=== PATIENT | female | born 1985 | race Caucasian/White ===

== ENCOUNTER 2017-06-17 20:37 | Emergency (ER) | payer MEDICAID ==
[2017-06-17] MEDS ORDERED: HYDROmorphone 1 MG/ML Syringe IM ONE (20:55)
[2017-06-17] MEDS ORDERED: Cyclobenzaprine 10 MG Tab PO ONE (20:56)
--- NOTE | 2017-06-17 20:59 | EDM.PDOC ---
ED HPI GENERAL MEDICAL PROBLEM - General Chief Complaint: Back Pain or Injury Stated Complaint: PINCH BACK Time Seen by Provider: 06/17/17 20:53 Source of Information: Reports: Patient History Limitations: Reports: No Limitations - History of Present Illness INITIAL COMMENTS - FREE TEXT/NARRATIVE: HISTORY AND PHYSICAL: []32-year-old female presenting with neck and upper back pain in the left History of Present Illness: []1 week ago patient was hugging a member at [employer] and felt her muscle strain Review of Systems: As per history of present illness and below otherwise all systems reviewed and negative. Past medical history: As per history of present illness and as reviewed below otherwise noncontributory. Surgical history: As per history of present illness and as reviewed below otherwise noncontributory. Social history: No reported history of drug or alcohol abuse. Family history: As per history of present illness and as reviewed below otherwise noncontributory. Physical exam: Alert and oriented female answering questions appropriately using full sentences without any shortness of breath HEENT: Atraumatic, normocehpalic, pupils reactive, negative for conjunctival pallor or scleral icterus, mucous membranes moist, throat clear, neck supple, nontender, trachea midline. Tenderness noted with palpation to the left of the cervical spine cord her muscle is noted when following the dermatome line across and down to her scapula muscle is noted medially. Lungs: Clear to auscultation, breath sounds equal bilaterally, chest non tender. Heart: S1S2, regular, negative for clicks, rubs, or JVD. Abdomen: Soft, nondistended, nontender. Negative for masses or hepatossplenmegaly. Negative for costovertebral tenderness. Pelvis: Stable nontender. Genitourinary: Deferred. Rectal: Deferred Extremities: Atraumatic, negative for cords or calf pain. Neurovascular unremarkable. Neuro: Awake, alert, oriented. Cranial nerves II through XII unremarkable. Cerebellum unremarkable. Motor and sensory unremarkable throughout. Exam nonfocal. Diagnostics: [] Therapeutics: [Dilaudid 0.5 IM ] Impression: []Musculoskeletal strain Plan: []Discharge to home Flexeril 3 times a day when necessary for pain Follow-up with your PCP this week Definitive disposition and diagnosis as appropriate pending reevaluation and review of above. Onset: Sudden Duration: Day(s): (7) Location: Reports: Neck, Upper Extremity, Left Upper Back Pain Score (Numeric/FACES): 9 - Related Data Allergies Allergy/AdvReac Type Severity Reaction Status Date / Time ketorolac [From Toradol] Allergy Other Verified 06/17/17 20:46 nifedipine Allergy Cannot Verified 04/17/15 11:17 Remember prednisone Allergy Cannot Verified 04/17/15 11:17 Remember tramadol Allergy Other Verified 06/17/17 20:46 Home Meds: Home Meds Gabapentin [Neurontin] 300 mg PO TID 06/17/17 [History] Past Medical History Musculoskeletal History: Reports: Fibromyalgia Social & Family History - Tobacco Use Smoking Status *Q: Current Every Day Smoker Years of Tobacco use: 10 Packs/Tins Daily: 0.5 - Recreational Drug Use Recreational Drug Use: No Recreational Drug Type: Reports: Marijuana/Hashish Recreational Drug Use Frequency: Rarely ED ROS GENERAL - Review of Systems Review Of Systems: ROS reveals no pertinent complaints other than HPI. ED EXAM, UPPER BACK/NECK PAIN - Physical Exam Exam: See Below (See dictation) Course - Vital Signs Last Recorded V/S: Last Vital Signs Temp 36.3 C 06/17/17 20:50 Pulse 83 06/17/17 20:50 Resp 18 06/17/17 20:50 BP 109/68 06/17/17 20:50 Pulse Ox 99 06/17/17 20:50 Departure - Departure Time of Disposition: 20:56 Disposition: Home, Self-Care 01 Condition: Good Clinical Impression: Musculoskeletal pain - Discharge Information Instructions: Muscle Strain, [id number] Referrals: Madyson Oliveira NP [Primary Care Provider] - Additional Instructions: The following information is given to patients seen in the emergency department who are being discharged to home. This information is to outline your options for follow-up care. We provide all patients seen in our emergency department with a follow-up referral. The need for follow-up, as well as the timing and circumstances, are variable depending upon the specifics of your emergency department visit. If you don't have a primary care physician on staff, we will provide you with a referral. We always advise you to contact your personal physician following an emergency department visit to inform them of the circumstance of the visit and for follow-up with them and/or the need for any referrals to a consulting specialist. The emergency department will also refer you to a specialist when appropriate. This referral assures that you have the opportunity for followup care with a specialist. All of these measure are taken in an effort to provide you with optimal care, which includes your followup. Under all circumstances we always encourage you to contact your private physician who remains a resource for coordinating your care. When calling for followup care, please make the office aware that this follow-up is from your recent emergency room visit. If for any reason you are refused follow-up, please contact the [facility] emergency department at and asked to speak to the emergency department charge nurse. You were given pain medication while in the emergency department as well as a muscle relaxant Please follow-up with your primary care provider this week Prescription for Flexeril 10 mg 3 times a day has been handwritten number of 9 tablets no refill
[2017-06-17 21:28] VITALS: BP 112/83
== END 2017-06-17 21:30 | disposition home or self-care (01) ==
LOC: MW.ED 20:37
DX: S29.012A Strain of muscle and tendon of back wall of thorax, initial encounter (principal); S16.1XXA Strain of muscle, fascia and tendon at neck level, initial encounter; F17.210 Nicotine dependence, cigarettes, uncomplicated; Z88.6 Allergy status to analgesic agent; Z88.8 Allergy status to other drugs, medicaments and biological substances; Z88.5 Allergy status to narcotic agent; X58.XXXA Exposure to other specified factors, initial encounter
CPT/HCPCS: 96372; 99283; A9270; J1170

== ENCOUNTER 2017-08-26 12:48 | Emergency (ER) | payer MEDICAID ==
[2017-08-26 13:37] VITALS: BP 129/80
--- NOTE | 2017-08-26 14:05 | EDM.PDOC ---
ED HPI GENERAL MEDICAL PROBLEM - General Chief Complaint: Lower Extremity Injury/Pain Stated Complaint: LT ANKLE SWOLLEN Time Seen by Provider: 08/26/17 13:45 Source of Information: Reports: Patient History Limitations: Reports: No Limitations - History of Present Illness INITIAL COMMENTS - FREE TEXT/NARRATIVE: HISTORY AND PHYSICAL: History of present illness: [Pt comes to the Er c/o L foot and ankle pain for the past 3 days. She has noticed quite a bit of swelling and bruising to her left foot and ankle. She estimates that her left ankle was 3 times the size of the right yesterday. Swelling resolved overnight the pain continues. She's noticed bruising to the top of her foot as well as around her medial ankle. Has been very tender with palpation. She denies injury and trauma. No recent falls. Pain is to the bottom of her foot, as well as lateral and medial ankle. She has a lot of pain to the arch of her left foot with certain foot motions. She took some ibuprofen at 7: 30 this morning which has not helped her pain. Denies fever and chills. No chest pain shortness of breath and difficulty breathing. No abdominal pain. She is eating and drinking well.] Review of systems: As per history of present illness and below otherwise all systems reviewed and negative. Past medical history: As per history of present illness and as reviewed below otherwise noncontributory. Surgical history: As per history of present illness and as reviewed below otherwise noncontributory. Social history: No reported history of drug or alcohol abuse. Family history: As per history of present illness and as reviewed below otherwise noncontributory. Physical exam: HEENT: Atraumatic, normocephalic. Extremities: Left lower leg, ankle and foot is atraumatic in appearance. No erythema or ecchymosis is appreciated. No swelling is appreciated. Pedal pulses are 2+. Capillary Refill less than 2 seconds. Has full range of motion. Complains of pain to her the arch of her left foot with extension. Negative Homans sign. No cords or calf pain with palpation. Neurovascular unremarkable. Neuro: Awake, alert, oriented. Motor and sensory unremarkable throughout. Exam nonfocal. Diagnostics: [Left foot x-ray, left ankle x-ray] Therapeutics: [Hydrocodone 5/325mg po] Impression: [L foot pain] Plan: [Discussed w/ patient that her xrays and labs are benign. Recommend OTC analgesics and anti-inflammatories prn, and she is given referral to local housing quality standard inspector. She requests Rx for hydrocodone, and is advised to maximize OTC medications. Strict return precautions reviewed. ] Definitive disposition and diagnosis as appropriate pending reevaluation and review of above. Left Ankle Pain Score (Numeric/FACES): 7 - Related Data Allergies Allergy/AdvReac Type Severity Reaction Status Date / Time ketorolac [From Toradol] Allergy Other Verified 06/17/17 20:46 nifedipine Allergy Cannot Verified 04/17/15 11:17 Remember prednisone Allergy Cannot Verified 04/17/15 11:17 Remember tramadol Allergy Other Verified 06/17/17 20:46 Home Meds: Home Meds Gabapentin [Neurontin] 300 mg PO TID 06/17/17 [History] Past Medical History Musculoskeletal History: Reports: Fibromyalgia Social & Family History - Tobacco Use Smoking Status *Q: Current Every Day Smoker Years of Tobacco use: 10 Packs/Tins Daily: 0.5 - Recreational Drug Use Recreational Drug Use: No Recreational Drug Type: Reports: Marijuana/Hashish Recreational Drug Use Frequency: Rarely Review of Systems - Review of Systems Review Of Systems: ROS reveals no pertinent complaints other than HPI. ED EXAM, GENERAL - Physical Exam Exam: See Below Course - Vital Signs Last Recorded V/S: Last Vital Signs Temp 98.2 F 08/26/17 13:35 Pulse 72 08/26/17 13:35 Resp 18 08/26/17 13:35 BP 129/80 08/26/17 13:35 Pulse Ox 98 08/26/17 13:35 - Orders/Labs/Meds Labs: Laboratory Tests 08/26/17 08/26/17 Range/Units 14:53 14:53 WBC 7.05 (4.0-11.0) K/uL RBC 4.01 L (4.30-5.90) M/uL Hgb 12.9 (12.0-16.0) g/dL Hct 37.6 (36.0-46.0) % MCV 93.8 (80.0-98.0) fL MCH 32.2 H (27.0-32.0) pg MCHC 34.3 (31.0-37.0) g/dL RDW Std Deviation 48.1 (28.0-62.0) fl RDW Coeff of Danny 14 (11.0-15.0) % Plt Count 251 (150-400) K/uL MPV 9.40 (7.40-12.00) fL Neut % (Auto) 65.1 (48.0-80.0) % Lymph % (Auto) 26.1 (16.0-40.0) % [place] % (Auto) 6.1 (0.0-15.0) % Eos % (Auto) 2.0 (0.0-7.0) % Baso % (Auto) 0.7 (0.0-1.5) % Neut # (Auto) 4.6 (1.4-5.7) K/uL Lymph # (Auto) 1.8 (0.6-2.4) K/uL [place] # (Auto) 0.4 (0.0-0.8) K/uL Eos # (Auto) 0.1 (0.0-0.7) K/uL Baso # (Auto) 0.1 (0.0-0.1) K/uL Nucleated RBC % 0.0 /100WBC Nucleated RBCs # 0 K/uL Uric Acid 2.1 L (2.6-7.2) mg/dL Meds: Medications Discontinued Medications Generic Name Dose Route Start Last Admin Trade Name Freq PRN Reason Stop Dose Admin Hydrocodone Bitart/Acetaminophen 1 tab 08/26/17 14:43 08/26/17 15:47 Atkinson 325-5 Mg PO 08/26/17 14:44 1 tab ONETIME ONE Administration Departure - Departure Time of Disposition: 15:35 Disposition: Home, Self-Care 01 Condition: Good Clinical Impression: Left foot pain - Discharge Information Instructions: Foot Pain Referrals: Madyson Oliveira NP [Primary Care Provider] - Forms: ED Department Discharge Additional Instructions: The following information is given to patients seen in the emergency department who are being discharged to home. This information is to outline your options for follow-up care. We provide all patients seen in our emergency department with a follow-up referral. The need for follow-up, as well as the timing and circumstances, are variable depending upon the specifics of your emergency department visit. If you don't have a primary care physician on staff, we will provide you with a referral. We always advise you to contact your personal physician following an emergency department visit to inform them of the circumstance of the visit and for follow-up with them and/or the need for any referrals to a consulting specialist. The emergency department will also refer you to a specialist when appropriate. This referral assures that you have the opportunity for follow-up care with a specialist. All of these measure are taken in an effort to provide you with optimal care, which includes your follow-up. Under all circumstances we always encourage you to contact your private physician who remains a resource for coordinating your care. When calling for follow-up care, please make the office aware that this follow-up is from your recent emergency room visit. If for any reason you are refused follow-up, please contact the [facility] emergency department at and asked to speak to the emergency department charge nurse. Dr. Mitzi Garcia [id number], [place] [id number] Your x-rays are negative for fracture and abnormality. Your labs show no gout or infection. Follow up with the housing quality standard inspector at the clinic listed above. Alternate ibuprofen w/ Tylenol as needed for discomfort. Return to ER as needed as discussed.
--- NOTE | 2017-08-26 14:19 | CR ---
EXAMINATION: Left ankle and left foot HISTORY: Pain COMPARISON: None TECHNIQUE: 3 views of the left ankle and 2 views of the left FINDINGS: There is no acute osseous abnormality, dislocation, or fracture. Bone mineralization and ayla int spaces appear normal. The ankle mortise and the talar dome appear intact. No focal soft tissue swelling or foreign body. IMPRESSION: No acute osseous abnormality identified.
[2017-08-26] MEDS ORDERED: Acetaminophen/HYDROcodone 325-5 MG Tab PO ONE (14:43)
== END 2017-08-26 15:44 | disposition home or self-care (01) ==
LOC: MW.ED 12:48
DX: M79.672 Pain in left foot (principal); F17.210 Nicotine dependence, cigarettes, uncomplicated; Z88.5 Allergy status to narcotic agent; Z88.6 Allergy status to analgesic agent; Z88.8 Allergy status to other drugs, medicaments and biological substances
CPT/HCPCS: 36415; 73610; 73620; 84550; 85025; 99283; A9270

== ENCOUNTER 2019-01-23 18:14 | Emergency (ER) | payer OTHER ==
[2019-01-23] MEDS ORDERED: Ondansetron 4 MG Tab.DIS PO ONE (19:11)
[2019-01-23] MEDS ORDERED: diphenhydrAMINE 50 MG/ML SDV IVPUSH ONE (19:11)
[2019-01-23] MEDS ORDERED: Sodium Chloride 0.9% 1,000 ML IV ONE (19:11)
[2019-01-23] MEDS ORDERED: Metoclopramide 10 MG/2 ML SDV IV ONE (19:11)
--- NOTE | 2019-01-23 19:14 | EDM.PDOC ---
ED HPI GENERAL MEDICAL PROBLEM - General Chief Complaint: Headache Stated Complaint: MIGRAINE Time Seen by Provider: 01/23/19 19:08 - History of Present Illness INITIAL COMMENTS - FREE TEXT/NARRATIVE: HISTORY AND PHYSICAL: History of present illness: Patient 33-year-old white female with history of migraine headache presents with concern of migraine this is has associated photophobia and nausea and states it began this a.m. she denies any obvious precipitant she states this sometimes does come on abruptly without clear causation. This is typical migraine for which she's been treated for years. Review of systems: As per history of present illness and below otherwise all systems reviewed and negative. Past medical history: As per history of present illness and as reviewed below otherwise noncontributory. Surgical history: As per history of present illness and as reviewed below otherwise noncontributory. Social history: No reported history of drug or alcohol abuse. Family history: As per history of present illness and as reviewed below otherwise noncontributory. Physical exam: HEENT: Atraumatic, normocephalic, pupils reactive, negative for conjunctival pallor or scleral icterus, mucous membranes moist, throat clear, neck supple, nontender, trachea midline. Lungs: Clear to auscultation, breath sounds equal bilaterally, chest nontender. Heart: S1S2, regular, negative for clicks, rubs, or JVD. Abdomen: Soft, nondistended, nontender. Negative for masses or hepatosplenomegaly. Negative for costovertebral tenderness. Pelvis: Stable nontender. Genitourinary: Deferred. Rectal: Deferred. Extremities: Atraumatic, negative for cords or calf pain. Neurovascular unremarkable. Neuro: Awake, alert, oriented. Cranial nerves II through XII unremarkable. Cerebellum unremarkable. Motor and sensory unremarkable throughout. Exam nonfocal. Diagnostics: UDS Therapeutics: Saline 1 L bolus Reglan 10 mg IV Benadryl 50 mg IV Zofran 4 mg IV Impression: #1 migraine headache Definitive disposition and diagnosis as appropriate pending reevaluation and review of above. Headache Pain Score (Numeric/FACES): 10 - Related Data Allergies Allergy/AdvReac Type Severity Reaction Status Date / Time ketorolac [From Toradol] Allergy Other Verified 01/23/19 18:36 nifedipine Allergy Cannot Verified 01/23/19 18:36 Remember prednisone Allergy Cannot Verified 01/23/19 18:36 Remember tramadol Allergy Other Verified 01/23/19 18:36 Home Meds: Home Meds . [No Known Home Meds] 01/23/19 [History] Past Medical History - Past Health History Medical/Surgical History: Denies Medical/Surgical History Musculoskeletal History: Reports: Fibromyalgia Neurological History: Reports: Migraines - Infectious Disease History Infectious Disease History: Reports: None Social & Family History - Family History Family Medical History: Noncontributory - Tobacco Use Smoking Status *Q: Current Every Day Smoker Years of Tobacco use: 15 Packs/Tins Daily: 1 - Caffeine Use Caffeine Use: Reports: Coffee - Recreational Drug Use Recreational Drug Use: Yes Drug Use in Last 12 Months: Yes Recreational Drug Type: Reports: Marijuana/Hashish Recreational Drug Use Frequency: Daily ED ROS GENERAL - Review of Systems Review Of Systems: ROS reveals no pertinent complaints other than HPI. ED EXAM, GENERAL - Physical Exam Exam: See Below (See dictation) Course - Vital Signs Last Recorded V/S: Last Vital Signs Temp 36.6 C 01/23/19 18:33 Pulse 77 01/23/19 18:33 Resp 20 01/23/19 18:33 BP 129/64 01/23/19 18:33 Pulse Ox 99 01/23/19 18:33 - Orders/Labs/Meds Labs: Laboratory Tests 01/23/19 Range/Units 19:50 Urine Opiates Screen NEGATIVE (NEGATIVE) Ur Oxycodone Screen NEGATIVE (NEGATIVE) Urine Methadone Screen NEGATIVE (NEGATIVE) Ur Barbiturates Screen NEGATIVE (NEGATIVE) Ur Phencyclidine Scrn NEGATIVE (NEGATIVE) Ur Amphetamine Screen NEGATIVE (NEGATIVE) U Methamphetamines Scrn NEGATIVE (NEGATIVE) U Benzodiazepines Scrn NEGATIVE (NEGATIVE) U Cocaine Metab Screen NEGATIVE (NEGATIVE) U Marijuana (THC) Screen POSITIVE (NEGATIVE) Meds: Medications Discontinued Medications Generic Name Dose Route Start Last Admin Trade Name Freq PRN Reason Stop Dose Admin Diphenhydramine HCl 50 mg 01/23/19 19:11 01/23/19 19:29 Benadryl IVPUSH 01/23/19 19:12 50 mg ONETIME ONE Administration Sodium Chloride 1,000 mls @ 999 mls/hr 01/23/19 19:11 01/23/19 19:28 Normal Saline IV 01/23/19 20:11 999 mls/hr STAT ONE Administration Metoclopramide HCl 10 mg 01/23/19 19:11 01/23/19 19:32 Reglan IV 01/23/19 19:12 10 mg ONETIME ONE Administration Ondansetron HCl 4 mg 01/23/19 19:11 01/23/19 19:29 Zofran Odt PO 01/23/19 19:12 4 mg ONETIME ONE Administration Departure - Departure Time of Disposition: 20:24 Disposition: Home, Self-Care 01 Condition: Good Clinical Impression: Migraine - Discharge Information Referrals: PCP,None [Primary Care Provider] - Forms: ED Department Discharge Additional Instructions: The following information is given to patients seen in the emergency department who are being discharged to home. This information is to outline your options for follow-up care. We provide all patients seen in our emergency department with a follow-up referral. The need for follow-up, as well as the timing and circumstances, are variable depending upon the specifics of your emergency department visit. If you don't have a primary care physician on staff, we will provide you with a referral. We always advise you to contact your personal physician following an emergency department visit to inform them of the circumstance of the visit and for follow-up with them and/or the need for any referrals to a consulting specialist. The emergency department will also refer you to a specialist when appropriate. This referral assures that you have the opportunity for followup care with a specialist. All of these measure are taken in an effort to provide you with optimal care, which includes your followup. Under all circumstances we always encourage you to contact your private physician who remains a resource for coordinating your care. When calling for followup care, please make the office aware that this follow-up is from your recent emergency room visit. If for any reason you are refused follow-up, please contact the [facility] emergency department at and asked to speak to the emergency department charge nurse. [facility] [address] [place] [id number] Follow-up primary medical doctor as discussed return as needed as discussed
[2019-01-23 20:56] VITALS: BP 119/68; PULSE 79
== END 2019-01-23 20:56 | disposition home or self-care (01) ==
LOC: MW.ED 18:14
DX: G43.909 Migraine, unspecified, not intractable, without status migrainosus (principal); F17.210 Nicotine dependence, cigarettes, uncomplicated; Z88.5 Allergy status to narcotic agent; Z88.6 Allergy status to analgesic agent; Z88.8 Allergy status to other drugs, medicaments and biological substances
CPT/HCPCS: 80305; 96361; 96374; 96375; 99283; A9270; J1200; J2765; J7040

== ENCOUNTER 2020-12-20 19:23 | Emergency (ER) | payer BC ==
[2020-12-20] MEDS ORDERED: Sodium Chloride 0.9% 1,000 ML IV ONE (20:14)
[2020-12-20] MEDS ORDERED: Metoclopramide 10 MG/2 ML SDV IV ONE (20:14)
[2020-12-20] MEDS ORDERED: diphenhydrAMINE 50 MG/ML SDV IVPUSH ONE (20:14)
[2020-12-20] MEDS ORDERED: Ondansetron 4 MG/2 ML SDV IVPUSH ONE (20:14)
[2020-12-20 21:51] VITALS: PULSE 66
[2020-12-20] MEDS ORDERED: Acetaminophen/HYDROcodone 325-5 MG Tab PO ONE (21:53)
--- NOTE | 2020-12-20 21:54 | EDM.PDOC ---
ED HPI GENERAL MEDICAL PROBLEM - General Chief Complaint: Headache Stated Complaint: MIGRAIN HEADACHE Time Seen by Provider: 12/20/20 19:41 Source of Information: Reports: Patient History Limitations: Reports: No Limitations - History of Present Illness INITIAL COMMENTS - FREE TEXT/NARRATIVE: HISTORY AND PHYSICAL: History of present illness: Patient is a 35-year-old female who resents to the ED today with concern of migraine headache over the past 3 to 4 days that has been constant. Patient states that she took 1 dose of Excedrin earlier this morning and then 1 dose of Tylenol this afternoon but states she has not had improvement of her symptoms. Patient states that she has a history of known migraine disorder and states that this is typical of her usual migraines. Patient states that is in the front and in the back of her head and has a pounding sensation with photophobia. Patient denies any head trauma or injury or any other associative symptoms. Patient denies fever, chills, chest pain, shortness of breath, or cough. Denies headache, neck stiff ness, change in vision, syncope, or near syncope. Denies nausea, vomiting, abdominal pain, diarrhea, constipation, or dysuria. Has not noted any blood in urine or stool. Patient has been eating and drinking appropriately. Review of systems: As per history of present illness and below otherwise all systems reviewed and negative. Past medical history: As per history of present illness and as reviewed below otherwise noncontributory. Surgical history: As per history of present illness and as reviewed below otherwise noncontributory. Social history: See social history for further information Family history: As per history of present illness and as reviewed below otherwise noncontributory. Physical exam: General: Patient is alert, oriented, and in no acute distress. Patient laying comfortably on exam table. Vitals stable and reviewed by me. HEENT: Atraumatic, normocephalic, pupils equal and reactive bilaterally, negative for conjunctival pallor or scleral icterus, mucous membranes moist, TMs normal bilaterally, throat clear, neck supple, nontender, trachea midline. No drooling or trismus noted. No meningeal signs. No hot potato voice noted. Lungs: Clear to auscultation, breath sounds equal bilaterally, chest nontender. Heart: S1S2, regular rate and rhythm without overt murmur Abdomen: Soft, nondistended, nontender. Negative for masses or hepatosplenomegaly. Negative for costovertebral tenderness. Pelvis: Stable nontender. Genitourinary: Deferred. Rectal: Deferred. Skin: Intact, warm, dry. No lesions or rashes noted. Extremities: Atraumatic, negative for cords or calf pain. Neurovascular unremarkable. Neuro: Awake, alert, oriented. Cranial nerves II through XII unremarkable. Cerebellum unremarkable. Motor and sensory unremarkable throughout. Exam nonfocal. Notes: Patient has improvement of symptoms with therapeutics today in the ED. Signs and symptoms that were prompt return to the ED thoroughly discussed with patient. Discussed importance for follow-up with a primary care provider. Voices understanding and is agreeable to plan of care. Denies any further questions or concerns at this time. Diagnostics: None Therapeutics: Saline, Zofran, Reglan, Benadryl, Stonewall 5/325 Prescription: None Impression: Migraine headache, improved Plan: 1. Encourage small but frequent sips of fluid to prevent dehydration. 2. Follow-up with a primary care provider as discussed. Return to the ED as needed as discussed. 3. You can take Tylenol as directed for pain and discomfort. Definitive disposition and diagnosis as appropriate pending reevaluation and review of above. Treatments IN ROOM DINING SERVER: Reports: Acetaminophen Frontal Head Pain Score (Numeric/FACES): 7 - Related Data Allergies Allergy/AdvReac Type Severity Reaction Status Date / Time ketorolac [From Toradol] Allergy Other Verified 12/20/20 20:03 nifedipine Allergy Cannot Verified 12/20/20 20:03 Remember prednisone Allergy Cannot Verified 12/20/20 20:03 Remember tramadol Allergy Other Verified 12/20/20 20:03 Home Meds: Home Meds . [No Known Home Meds] 01/23/19 [History] Past Medical History - Past Health History Medical/Surgical History: Denies Medical/Surgical History HEENT History: Reports: None Cardiovascular History: Reports: None Respiratory History: Reports: None Gastrointestinal History: Reports: None ARTICULATION OFFICER History: Reports: None Musculoskeletal History: Reports: Fibromyalgia Neurological History: Reports: Migraines Psychiatric History: Reports: None Endocrine/Metabolic History: Reports: None Hematologic History: Reports: None Immunologic History: Reports: None Oncologic (Cancer) History: Reports: None Dermatologic History: Reports: None - Infectious Disease History Infectious Disease History: Reports: None - Past Surgical History Head Surgeries/Procedures: Reports: None Respiratory Surgical History: Reports: None Female Surgical History: Reports: Hysterectomy, Salpingo-Oophorectomy Musculoskeletal Surgical History: Reports: None Oncologic Surgical History: Reports: None Social & Family History - Family History Family Medical History: No Pertinent Family History - Tobacco Use Tobacco Use Status *Q: Heavy Tobacco User Years of Tobacco use: 9 Packs/Tins Daily: 0 - Caffeine Use Caffeine Use: Reports: Coffee, Energy Drinks - Recreational Drug Use Recreational Drug Use: Yes Drug Use in Last 12 Months: Yes Recreational Drug Type: Reports: Marijuana/Hashish Recreational Drug Use Frequency: Daily ED ROS GENERAL - Review of Systems Review Of Systems: Comprehensive ROS is negative, except as noted in HPI. ED EXAM, GENERAL - Physical Exam Exam: See Below (See dictation) Course - Vital Signs Last Recorded V/S: Last Vital Signs Temp 99.2 F 12/20/20 20:04 Pulse 66 12/20/20 21:50 Resp 18 12/20/20 21:50 BP 99/50 L 12/20/20 21:50 Pulse Ox 98 12/20/20 21:50 - Orders/Labs/Meds Meds: Medications Discontinued Medications Generic Name Dose Route Start Last Admin Trade Name Freq PRN Reason Stop Dose Admin Hydrocodone Bitart/Acetaminophen 1 tab 12/20/20 21:53 Acetaminophen/Hydrocodone 325-5 Mg Tab PO 12/20/20 21:54 ONETIME ONE Diphenhydramine HCl 50 mg 12/20/20 20:14 12/20/20 20:22 Diphenhydramine 50 Mg/Ml Sdv IVPUSH 12/20/20 20:15 50 mg ONETIME ONE Administration Sodium Chloride 1,000 mls @ 999 mls/hr 12/20/20 20:14 12/20/20 20:22 Normal Saline IV 12/20/20 21:14 999 mls/hr STAT ONE Administration Metoclopramide HCl 10 mg 12/20/20 20:14 12/20/20 20:22 Metoclopramide 10 Mg/2 Ml Sdv IV 12/20/20 20:15 10 mg ONETIME ONE Administration Ondansetron HCl 4 mg 12/20/20 20:14 12/20/20 20:22 Ondansetron 4 Mg/2 Ml Sdv IVPUSH 12/20/20 20:15 4 mg ONETIME ONE Administration Departure - Departure Time of Disposition: 21:54 Disposition: Home, Self-Care 01 Clinical Impression: Migraine - Discharge Information Referrals: Anton Garcia DO [Primary Care Provider] - Forms: ED Department Discharge Additional Instructions: The following information is given to patients seen in the emergency department who are being discharged to home. This information is to outline your options for follow-up care. We provide all patients seen in our emergency department with a follow-up referral. The need for follow-up, as well as the timing and circumstances, are variable depending upon the specifics of your emergency department visit. If you don't have a primary care physician on staff, we will provide you with a referral. We always advise you to contact your personal physician following an emergency department visit to inform them of the circumstance of the visit and for follow-up with them and/or the need for any referrals to a consulting specialist. The emergency department will also refer you to a specialist when appropriate. This referral assures that you have the opportunity for follow-up care with a specialist. All of these measure are taken in an effort to provide you with optimal care, which includes your follow-up. Under all circumstances we always encourage you to contact your private physician who remains a resource for coordinating your care. When calling for follow-up care, please make the office aware that this follow-up is from your recent emergency room visit. If for any reason you are refused follow-up, please contact the [facility] Emergency Department at and asked to speak to the emergency department charge nurse. [facility] [address] [place] [id number] [address] [address] 1. Encourage small but frequent sips of fluid to prevent dehydration. 2. Follow-up with a primary care provider as discussed. Return to the ED as needed as discussed. 3. You can take Tylenol as directed for pain and discomfort. Sepsis Event Note (ED) - Evaluation Sepsis Screening Result: No Definite Risk - Focused Exam Vital Signs: Vital Signs Temp Pulse Resp BP Pulse Ox 12/20/20 21:50 66 18 99/50 L 98 12/20/20 20:04 99.2 F 67 18 125/68 97
[2020-12-20 22:35] VITALS: BP 121/61
== END 2020-12-20 22:35 | disposition home or self-care (01) ==
LOC: MW.ED 19:23
DX: G43.909 Migraine, unspecified, not intractable, without status migrainosus (principal); Z88.5 Allergy status to narcotic agent; Z88.6 Allergy status to analgesic agent; Z88.8 Allergy status to other drugs, medicaments and biological substances; Z72.0 Tobacco use
CPT/HCPCS: 96374; 96375; 99283; A9270; J1200; J2405; J2765; J7030

== ENCOUNTER 2021-06-29 11:15 | Emergency (ER) | payer BC ==
[2021-06-29] MEDS ORDERED: diphenhydrAMINE 50 MG/ML SDV IVPUSH ONE (11:32)
[2021-06-29] MEDS ORDERED: Metoclopramide 10 MG/2 ML SDV IVPUSH ONE (11:32)
[2021-06-29] MEDS ORDERED: Acetaminophen/Butalbital/Caffeine 325-50-40 MG Tab PO ONE (11:33)
[2021-06-29] MEDS ORDERED: Sodium Chloride 0.9% 1,000 ML IV ONE (11:34)
--- NOTE | 2021-06-29 11:40 | EDM.PDOC ---
ED HPI GENERAL MEDICAL PROBLEM - General Chief Complaint: Headache Stated Complaint: "BAD HEADACHE" Time Seen by Provider: 06/29/21 11:16 Source of Information: Reports: Patient History Limitations: Reports: No Limitations - History of Present Illness INITIAL COMMENTS - FREE TEXT/NARRATIVE: 36-year-old female past medical history migraine headaches presents for presumptive migraine headache. Patient states that symptoms started this morning shortly after waking up. Pain is primarily in right retro-orbital face radiating to right occipital head. It is associated with dizziness, light sensitivity, sound sensitivity, nausea. Patient did note that she had a cough this morning but denies shortness of breath or chest pain. She is uncertain if she has had fevers. She does state that this feels like her typical migraine headaches but worse. She took 2 sumatriptan tablets without relief of symptoms prompting her to come to the emergency department. Treatments BOILING TUB OPERATOR: Reports: Other (see below) Other Treatments BOILING TUB OPERATOR: Sumitriptan 25mg x2 this morning - Related Data Allergies Allergy/AdvReac Type Severity Reaction Status Date / Time ketorolac [From Toradol] Allergy Other Verified 12/20/20 20:03 nifedipine Allergy Cannot Verified 12/20/20 20:03 Remember prednisone Allergy Cannot Verified 12/20/20 20:03 Remember tramadol Allergy Other Verified 12/20/20 20:03 Home Meds: Home Meds . [No Known Home Meds] 01/23/19 [History] Past Medical History - Past Health History Medical/Surgical History: Denies Medical/Surgical History HEENT History: Reports: None Cardiovascular History: Reports: None Respiratory History: Reports: None Gastrointestinal History: Reports: None SOLUTIONS MARKET CONSULTANT History: Reports: None Musculoskeletal History: Reports: Fibromyalgia Neurological History: Reports: Migraines Psychiatric History: Reports: None Endocrine/Metabolic History: Reports: None Hematologic History: Reports: None Immunologic History: Reports: None Oncologic (Cancer) History: Reports: None Dermatologic History: Reports: None - Infectious Disease History Infectious Disease History: Reports: None - Past Surgical History Head Surgeries/Procedures: Reports: None Respiratory Surgical History: Reports: None Female Surgical History: Reports: Hysterectomy, Salpingo-Oophorectomy Musculoskeletal Surgical History: Reports: None Oncologic Surgical History: Reports: None Social & Family History - Family History Family Medical History: No Pertinent Family History - Caffeine Use Caffeine Use: Reports: Coffee, Energy Drinks ED ROS GENERAL - Review of Systems Review Of Systems: Comprehensive ROS is negative, except as noted in HPI. ED EXAM, GENERAL - Physical Exam Exam: See Below Exam Limited By: No Limitations General Appearance: Alert, WD/WN, No Apparent Distress Eye Exam: Bilateral Eye: EOMI, PERRL Ears: Hearing Grossly Normal Throat/Mouth: Normal Voice, No Airway Compromise Head: Atraumatic, Normocephalic Respiratory/Chest: No Respiratory Distress, Lungs Clear, Normal Breath Sounds, No Accessory Muscle Use Cardiovascular: Normal Peripheral Pulses, Regular Rate, Rhythm Extremities: Normal Inspection Neurological: Alert, CN II-XII Intact, Normal Cognition, Normal Gait, No Motor/Sensory Deficits Psychiatric: Normal Affect, Normal Mood Skin Exam: Warm, Dry, Intact, Normal Color Course - Vital Signs Last Recorded V/S: Last Vital Signs Temp 97.7 F 06/29/21 11:29 Pulse 71 06/29/21 12:27 Resp 18 06/29/21 12:27 BP 123/73 06/29/21 12:27 Pulse Ox 100 06/29/21 12:27 - Orders/Labs/Meds Orders: Active Orders 24 hr Category Date Time Status Saline Lock Insert [OM.PC] Stat Oth 06/29/21 11:32 Ordered Labs: Laboratory Tests 06/29/21 06/29/21 06/29/21 Range/Units 11:40 11:40 11:40 WBC 10.00 (4.0-11.0) K/uL RBC 4.01 L (4.30-5.90) M/uL Hgb 13.1 (12.0-16.0) g/dL Hct 38.2 (36.0-46.0) % MCV 95.3 (80.0-98.0) fL MCH 32.7 H (27.0-32.0) pg MCHC 34.3 (31.0-37.0) g/dL RDW Std Deviation 47.6 (28.0-62.0) fl RDW Coeff of Danny 14 (11.0-15.0) % Plt Count 393 (150-400) K/uL MPV 9.40 (7.40-12.00) fL Neut % (Auto) 60.1 (48.0-80.0) % Lymph % (Auto) 31.3 (16.0-40.0) % Highland % (Auto) 5.6 (0.0-15.0) % Eos % (Auto) 2.2 (0.0-7.0) % Baso % (Auto) 0.8 (0.0-1.5) % Neut # (Auto) 6.0 H (1.4-5.7) K/uL Lymph # (Auto) 3.1 H (0.6-2.4) K/uL Highland # (Auto) 0.6 (0.0-0.8) K/uL Eos # (Auto) 0.2 (0.0-0.7) K/uL Baso # (Auto) 0.1 (0.0-0.1) K/uL Nucleated RBC % 0.0 /100WBC Nucleated RBCs # 0 K/uL Sodium 140 (136-145) mmol/L Potassium 3.7 (3.5-5.1) mmol/L Chloride 105 (98-107) mmol/L Carbon Dioxide 28.3 (21.0-32.0) mmol/L BUN 16 (7.0-18.0) mg/dL Creatinine 0.7 (0.6-1.0) mg/dL Est Cr Clr Drug Dosing TNP Estimated GFR (MDRD) > 60.0 ml/min Glucose 95 (74-106) mg/dL Calcium 8.3 L (8.5-10.1) mg/dL Magnesium 1.9 (1.8-2.4) mg/dL Total Bilirubin 0.8 (0.2-1.0) mg/dL AST 21 (15-37) IU/L ALT 22 (14-63) IU/L Alkaline Phosphatase 47 (46-116) U/L Total Protein 7.3 (6.4-8.2) g/dL Albumin 4.1 (3.4-5.0) g/dL Globulin 3.2 (2.6-4.0) g/dL Albumin/Globulin Ratio 1.3 (0.9-1.6) HCG, Qual NEGATIVE (NEG) Influenza Type A RNA (NEGATIVE) Influenza Type B RNA (NEGATIVE) SARS-CoV-2 RNA (SHERITA) (NEGATIVE) 06/29/21 Range/Units 11:45 WBC (4.0-11.0) K/uL RBC (4.30-5.90) M/uL Hgb (12.0-16.0) g/dL Hct (36.0-46.0) % MCV (80.0-98.0) fL MCH (27.0-32.0) pg MCHC (31.0-37.0) g/dL RDW Std Deviation (28.0-62.0) fl RDW Coeff of Danny (11.0-15.0) % Plt Count (150-400) K/uL MPV (7.40-12.00) fL Neut % (Auto) (48.0-80.0) % Lymph % (Auto) (16.0-40.0) % Highland % (Auto) (0.0-15.0) % Eos % (Auto) (0.0-7.0) % Baso % (Auto) (0.0-1.5) % Neut # (Auto) (1.4-5.7) K/uL Lymph # (Auto) (0.6-2.4) K/uL Highland # (Auto) (0.0-0.8) K/uL Eos # (Auto) (0.0-0.7) K/uL Baso # (Auto) (0.0-0.1) K/uL Nucleated RBC % /100WBC Nucleated RBCs # K/uL Sodium (136-145) mmol/L Potassium (3.5-5.1) mmol/L Chloride (98-107) mmol/L Carbon Dioxide (21.0-32.0) mmol/L BUN (7.0-18.0) mg/dL Creatinine (0.6-1.0) mg/dL Est Cr Clr Drug Dosing Estimated GFR (MDRD) ml/min Glucose (74-106) mg/dL Calcium (8.5-10.1) mg/dL Magnesium (1.8-2.4) mg/dL Total Bilirubin (0.2-1.0) mg/dL AST (15-37) IU/L ALT (14-63) IU/L Alkaline Phosphatase (46-116) U/L Total Protein (6.4-8.2) g/dL Albumin (3.4-5.0) g/dL Globulin (2.6-4.0) g/dL Albumin/Globulin Ratio (0.9-1.6) HCG, Qual (NEG) Influenza Type A RNA NEGATIVE (NEGATIVE) Influenza Type B RNA NEGATIVE (NEGATIVE) SARS-CoV-2 RNA (SHERITA) NEGATIVE (NEGATIVE) Meds: Medications Discontinued Medications Generic Name Dose Route Start Last Admin Trade Name Hollie PRN Reason Stop Dose Admin Acetaminophen/Butalbital/Caffeine 2 tab 06/29/21 11:33 06/29/21 11:56 Acetaminophen/Butalbital/Caffeine 325-50-40 Mg Tab PO 06/29/21 11:34 2 tab ONETIME ONE Administration Diphenhydramine HCl 50 mg 06/29/21 11:32 06/29/21 11:55 Diphenhydramine 50 Mg/Ml Sdv IVPUSH 06/29/21 11:33 50 mg ONETIME ONE Administration Sodium Chloride 1,000 mls @ 999 mls/hr 06/29/21 11:34 06/29/21 11:55 Normal Saline IV 06/29/21 12:34 999 mls/hr .Bolus ONE Administration Metoclopramide HCl 10 mg 06/29/21 11:32 06/29/21 11:55 Metoclopramide 10 Mg/2 Ml Sdv IVPUSH 06/29/21 11:33 10 mg ONETIME ONE Administration - Re-Assessments/Exams Free Text/Narrative Re-Assessment/Exam: 06/29/21 11:40 Will get labs, will treat symptomatically. 06/29/21 12:56 Patient is feeling much better. Will discharge with a short course of Fioricet and recommend neurology follow-up. Patient understands return precautions. Departure - Departure Time of Disposition: 12:56 Disposition: Home, Self-Care 01 Condition: Good Clinical Impression: Headache Qualifiers: Headache type: unspecified Headache chronicity pattern: unspecified pattern Intractability: not intractable Qualified Code(s): R51.9 - Headache, unspecified - Discharge Information Instructions: Migraine Headache Forms: ED Department Discharge Additional Instructions: Your medication was sent to [facility]. [facility] [address] [place] [address], [address] [place], [place] [id number] The following information is given to patients seen in the emergency department who are being discharged to home. This information is to outline your options for follow-up care. We provide all patients seen in our emergency department with a follow-up referral. The need for follow-up, as well as the timing and circumstances, are variable depending upon the specifics of your emergency department visit. If you don't have a primary care physician on staff, we will provide you with a referral. We always advise you to contact your personal physician following an emergency department visit to inform them of the circumstance of the visit and for follow-up with them and/or the need for any referrals to a consulting specialist. The emergency department will also refer you to a specialist when appropriate. This referral assures that you have the opportunity for follow-up care with a specialist. All of these measure are taken in an effort to provide you with optimal care, which includes your follow-up. Under all circumstances we always encourage you to contact your private physician who remains a resource for coordinating your care. When calling for follow-up care, please make the office aware that this follow-up is from your recent emergency room visit. If for any reason you are refused follow-up, please contact the [facility] Emergency Department at and asked to speak to the emergency department charge nurse. Please follow up with your primary care physician. If you do not have a primary care physician, see below: [facility] [address] [place] [id number] [facility] [address] [place] [address] [facility] [address] [place] [id number] Sepsis Event Note (ED) - Focused Exam Vital Signs: Vital Signs Temp Pulse Resp BP Pulse Ox 06/29/21 12:27 71 18 123/73 100 06/29/21 11:29 97.7 F 97 22 H 153/77 H 99 - My Orders Last 24 Hours: My Active Orders 06/29/21 11:32 Saline Lock Insert [OM.PC] Stat - Assessment/Plan Last 24 Hours: My Active Orders 06/29/21 11:32 Saline Lock Insert [OM.PC] Stat
[2021-06-29 12:28] VITALS: BP 123/73; PULSE 71
[2021-06-29 12:30] LABS: BLOOD UREA NITROGEN,BUN 16 mg/dL (7.0-18.0); CARBON DIOXIDE,CO2 28.3 mmol/L (21.0-32.0); CHLORIDE,CL 105 mmol/L (98-107); GLUCOSE RANDOM 95 mg/dL (74-106); POTASSIUM,K 3.7 mmol/L (3.5-5.1); SODIUM,NA 140 mmol/L (136-145)
[2021-06-29 12:52] LABS: CORONAVIRUS COVID-19 NAA NEGATIVE (NEGATIVE); INFLUENZA A NAA NEGATIVE (NEGATIVE); INFLUENZA B NAA NEGATIVE (NEGATIVE)
== END 2021-06-29 13:08 | disposition home or self-care (01) ==
LOC: MW.ED 11:15
DX: R51.9 Headache, unspecified (principal); Z88.5 Allergy status to narcotic agent; Z88.6 Allergy status to analgesic agent; Z88.8 Allergy status to other drugs, medicaments and biological substances; Z20.822 Contact with and (suspected) exposure to COVID-19
CPT/HCPCS: 0240U; 36415; 80053; 83735; 84703; 85025; 96374; 96375; 99284; A9270; J1200; J2765; J7030

== ENCOUNTER 2022-06-24 19:01 | Emergency (ER) | payer SELFPAY ==
[2022-06-24 19:51] VITALS: BP 128/64; PULSE 69
[2022-06-24] MEDS ORDERED: Sodium Chloride 0.9% 1,000 ML IV ONE (20:09)
[2022-06-24] MEDS ORDERED: Metoclopramide 10 MG/2 ML SDV IVPUSH ONE (20:09)
[2022-06-24] MEDS ORDERED: Acetaminophen/Butalbital/Caffeine 325-50-40 MG Tab PO ONE (20:09)
[2022-06-24] MEDS ORDERED: diphenhydrAMINE 50 MG/ML SDV IVPUSH ONE (20:09)
[2022-06-24 20:30] LABS: CORONAVIRUS COVID-19 NAA NEGATIVE (NEGATIVE); INFLUENZA A NAA NEGATIVE (NEGATIVE); INFLUENZA B NAA NEGATIVE (NEGATIVE); RESPIRATORY SYNCYTIAL VIR NAA POSITIVE (NEGATIVE)
[2022-06-24 21:09] LABS: CARBON DIOXIDE,CO2 25.7 mmol/L (21.0-32.0); POTASSIUM,K 3.3 mmol/L (3.5-5.1)
[2022-06-24] MEDS ORDERED: Prochlorperazine 10 MG/2 ML SDV IM ONE (21:31)
== END 2022-06-24 22:37 | disposition home or self-care (01) ==
LOC: MW.ED 19:01
DX: G43.909 Migraine, unspecified, not intractable, without status migrainosus (principal); B97.4 Respiratory syncytial virus as the cause of diseases classified elsewhere; F17.210 Nicotine dependence, cigarettes, uncomplicated; Z88.1 Allergy status to other antibiotic agents; Z88.5 Allergy status to narcotic agent; Z88.8 Allergy status to other drugs, medicaments and biological substances; Z90.710 Acquired absence of both cervix and uterus; Z20.822 Contact with and (suspected) exposure to COVID-19
CPT/HCPCS: 0241U; 36415; 80053; 85025; 96361; 96372; 96374; 96375; 99283; A9270; J0780; J1200; J2765; J7030

== ENCOUNTER 2022-09-24 10:13 | Emergency (ER) | payer BC ==
[2022-09-24] MEDS ORDERED: Dexamethasone 10 MG/ML SDV IV ONE (12:01)
[2022-09-24] MEDS ORDERED: diphenhydrAMINE 50 MG/ML SDV IVPUSH ONE (12:01)
[2022-09-24] MEDS ORDERED: Lactated Ringers 1,000 ML IV ONE (12:01)
[2022-09-24] MEDS ORDERED: Prochlorperazine 10 MG/2 ML SDV IVPUSH ONE (12:01)
[2022-09-24] MEDS ORDERED: Acetaminophen 325 MG Tab PO ONE (12:02)
[2022-09-24 13:31] VITALS: BP 151/76; PULSE 78
== END 2022-09-24 13:29 | disposition home or self-care (01) ==
LOC: MW.ED 10:13
DX: R51.9 Headache, unspecified (principal); J06.9 Acute upper respiratory infection, unspecified; Z88.5 Allergy status to narcotic agent; Z88.8 Allergy status to other drugs, medicaments and biological substances
CPT/HCPCS: 87651; 96361; 96374; 96375; 99284; A9270; J0780; J1100; J1200; J7120

== ENCOUNTER 2022-10-09 19:19 | Emergency (ER) | payer OTHER, BC ==
[2022-10-09] MEDS ORDERED: Sodium Chloride 0.9% 1,000 ML IV ONE (19:32)
[2022-10-09 19:50] LABS: BLOOD UREA NITROGEN,BUN 10 mg/dL (7.0-18.0); CARBON DIOXIDE,CO2 23.4 mmol/L (21.0-32.0); CHLORIDE,CL 108 mmol/L (98-107); GLUCOSE RANDOM 117 mg/dL (74-106); LIPASE 79 U/L (73-393); POTASSIUM,K 3.6 mmol/L (3.5-5.1); SODIUM,NA 146 mmol/L (136-145)
[2022-10-09 19:52] LABS: ESTIMATED GFR 120 mL/min (>60)
[2022-10-09] MEDS ORDERED: Iopamidol 755 MG/ML 500 ML Multipack Bottle IVPUSH STA (19:52)
[2022-10-09] MEDS ORDERED: Lidocaine/Epineph/Tetracaine 3 ML Syringe TOP ONE (19:59)
[2022-10-09] MEDS: Morphine 4 MG/ML Syringe IVPUSH PRN ×2 (20:00→20:51)
[2022-10-09] MEDS ORDERED: Lidocaine 1% 5 ML VIAL INJECT ONE (21:33)
[2022-10-09] MEDS ORDERED: Lidocaine 1% 5 ML VIAL INJECT STA (22:03)
[2022-10-09] MEDS ORDERED: Morphine 4 MG/ML Syringe IVPUSH ONE (22:18)
[2022-10-09] MEDS ORDERED: LORazepam 2 MG/ML SDV IVPUSH STA (22:40)
[2022-10-09] MEDS ORDERED: fentaNYL 50 MCG/ML SDV IVPUSH STA (23:10)
[2022-10-10] MEDS ORDERED: Diphtheria,Pertussis(Acell),Tetanus Vaccine 0.5 ML Syringe IM ONE (00:29)
[2022-10-10] MEDS ORDERED: Acetaminophen/HYDROcodone 325-10 MG Tab PO ONE (03:24)
[2022-10-10 03:38] VITALS: BP 123/75; PULSE 78
== END 2022-10-10 03:38 | disposition home or self-care (01) ==
LOC: MW.ED 19:19
DX: S06.0X1A Concussion with loss of consciousness of 30 minutes or less, initial encounter (principal); S01.21XA Laceration without foreign body of nose, initial encounter; S01.111A Laceration without foreign body of right eyelid and periocular area, initial encounter; S20.211A Contusion of right front wall of thorax, initial encounter; Z88.5 Allergy status to narcotic agent; Z88.8 Allergy status to other drugs, medicaments and biological substances; Z23 Encounter for immunization; V86.55XA Driver of 3- or 4- wheeled all-terrain vehicle (ATV) injured in nontraffic accident, initial encounter; Y92.410 Unspecified street and highway as the place of occurrence of the external cause
CPT/HCPCS: 12014; 36415; 70450; 70486; 71260; 72125; 73030; 73060; 73070; 73090; 74177; 80053; 80305; 80307; 83690; 84703; 85027; 85610; 90471; 90715; 96361; 96374; 96375; 99285; A9270; J2060; J2270; J3010; J7030; Q9967; 99284; J3490

== ENCOUNTER 2022-10-18 16:50 | Emergency (ER) | payer BC ==
[2022-10-18] MEDS ORDERED: Sodium Chloride 0.9% 10 ML Syringe FLUSH PRN (17:06)
[2022-10-18] MEDS ORDERED: Sodium Chloride 0.9% 2.5 ML Syringe FLUSH PRN (17:06)
[2022-10-18 18:05] LABS: CARBON DIOXIDE,CO2 24.9 mmol/L (21.0-32.0); POTASSIUM,K 4.1 mmol/L (3.5-5.1)
[2022-10-18] MEDS ORDERED: Acetaminophen/HYDROcodone 325-10 MG Tab PO STA (18:40)
[2022-10-18] MEDS ORDERED: Iopamidol 755 MG/ML 500 ML Multipack Bottle IVPUSH ONE (19:22)
[2022-10-18 20:40] VITALS: BP 130/77; PULSE 75
== END 2022-10-18 20:39 | disposition home or self-care (01) ==
LOC: MW.ED 16:50
DX: R07.89 Other chest pain (principal); L81.4 Other melanin hyperpigmentation; Z88.5 Allergy status to narcotic agent; Z88.8 Allergy status to other drugs, medicaments and biological substances; Z72.0 Tobacco use
CPT/HCPCS: 36415; 71045; 71275; 80053; 80305; 81003; 81025; 83735; 84484; 85025; 85379; 93005; 99285; A9270; Q9967; 93010; 99284

== ENCOUNTER 2022-12-22 08:47 | Emergency (ER) | payer BC ==
[2022-12-22] MEDS ORDERED: Acetaminophen 500 MG Tab PO ONE (09:18)
[2022-12-22 10:04] LABS: CORONAVIRUS COVID-19 NAA NEGATIVE (NEGATIVE); RESPIRATORY SYNCYTIAL VIR NAA NEGATIVE (NEGATIVE)
[2022-12-22 10:48] VITALS: BP 129/59; PULSE 76
== END 2022-12-22 10:47 | disposition home or self-care (01) ==
LOC: MW.ED 08:47
DX: J40 Bronchitis, not specified as acute or chronic (principal); F17.210 Nicotine dependence, cigarettes, uncomplicated; Z88.5 Allergy status to narcotic agent; Z88.8 Allergy status to other drugs, medicaments and biological substances
CPT/HCPCS: 71045; 87634; 87635; 87651; 99283; A9270; 99284; U0002

== ENCOUNTER 2024-06-05 13:15 | Emergency (ER) | payer BC ==
[2024-06-05] MEDS: Acetaminophen 500 MG Tab PO ONE (14:03)
[2024-06-05] MEDS: Sodium Chloride 0.9% 1,000 ML IV ONE (14:03)
[2024-06-05] MEDS: diphenhydrAMINE 50 MG/ML SDV IVPUSH ONE (14:04)
[2024-06-05] MEDS: Prochlorperazine 10 MG/2 ML SDV IVPUSH ONE (14:04)
[2024-06-05 15:48] VITALS: BP 118/70; PULSE 74
== END 2024-06-05 15:48 | disposition home or self-care (01) ==
LOC: MW.ED 13:15
DX: G43.909 Migraine, unspecified, not intractable, without status migrainosus (principal); Z90.710 Acquired absence of both cervix and uterus; Z88.5 Allergy status to narcotic agent; Z88.8 Allergy status to other drugs, medicaments and biological substances; Z79.899 Other long term (current) drug therapy; Z75.8 Other problems related to medical facilities and other health care
CPT/HCPCS: 96361; 96374; 96375; 99283; A9270; J0780; J1200; J7030